=== PATIENT | female | born 1950 | race Two or more races ===

== ENCOUNTER 2022-12-31 08:59 | Inpatient (IN) | payer OTHER ==
[~2022-12-31] VITALS: Ht 152.4 cm; Wt 58.1 kg
[2023-01-01] MEDS ORDERED: METFORMIN HCL1000 M2 PO (08:26)
[2023-01-01] MEDS ORDERED: ZETIA10 MG PO (08:26)
[2023-01-01] MEDS ORDERED: COZAAR100 MG PO (08:26)
[2023-01-01] MEDS ORDERED: ATORVASTATIN CA10 MG PO (08:26)
[2023-01-01] MEDS ORDERED: PLAVIX75 MG PO (08:27)
[2023-01-01] MEDS ORDERED: HYDRODIURIL12.5 MG PO (08:27)
[2023-01-08 14:18] LABS: HEMATOCRIT 35.3 % (36.0-45.00); HEMOGLOBIN 11.2 g/dL (12.0-15.00); MEAN CORPUSCULAR HEMOGLOBIN 27.6 pg (27.00-32.0); MEAN CORPUSCULAR HGB CONC 31.8 g/dl (32.0-36.0); PLATELET COUNT 204 K/uL (150-450); RED BLOOD COUNT 4.06 M/uL (4.00-6.00); RED CELL DISTRIBUTION WIDTH 13.4 % (11.5-14.5)
[2023-01-09 08:01] LABS: HEMATOCRIT 30.2 % (36.0-45.00); HEMOGLOBIN 9.9 g/dL (12.0-15.00); MEAN CELL VOLUME 86.4 fL (80.00-100.00); MEAN CORPUSCULAR HEMOGLOBIN 28.2 pg (27.00-32.0); MEAN CORPUSCULAR HGB CONC 32.6 g/dl (32.0-36.0); PLATELET COUNT 169 K/uL (150-450); RED CELL DISTRIBUTION WIDTH 13.4 % (11.5-14.5)
[2023-01-09 09:05] LABS: ALBUMIN 2.7 gm/dL (3.4-5.0); CALCIUM 7.6 mg/dL (8.5-10.1); CREATININE SERUM 1.69 mg/dL (0.55-1.02); GFR 29.92; PHOSPHOROUS 4.2 mg/dL (2.5-4.9); POTASSIUM 4.37 mEq/L (3.5-5.1)
[2023-01-09 09:10] LABS: MAGNESIUM 1.4 mg/dL (1.8-2.4)
[2023-01-10 07:15] LABS: HEMATOCRIT 32.1 % (36.0-45.00); MEAN CELL VOLUME 85.7 fL (80.00-100.00); MEAN CORPUSCULAR HGB CONC 32.5 g/dl (32.0-36.0); PLATELET COUNT 169 K/uL (150-450); RED BLOOD COUNT 3.75 M/uL (4.00-6.00); RED CELL DISTRIBUTION WIDTH 13.5 % (11.5-14.5)
[2023-01-10 07:28] LABS: HEMOGLOBIN 10.4 g/dL (12.0-15.00); MEAN CORPUSCULAR HEMOGLOBIN 27.7 pg (27.00-32.0)
[2023-01-10 07:30] LABS: CALCIUM 8.1 mg/dL (8.5-10.1); CREATININE SERUM 1.24 mg/dL (0.55-1.02); GFR 42.76; MAGNESIUM 1.5 mg/dL (1.8-2.4); POTASSIUM 3.59 mEq/L (3.5-5.1)
[2023-01-11 08:37] LABS: CALCIUM 8.3 mg/dL (8.5-10.1); CREATININE SERUM 0.87 mg/dL (0.55-1.02); GFR 64.37; MAGNESIUM 1.7 mg/dL (1.8-2.4); PHOSPHOROUS 2.2 mg/dL (2.5-4.9); POTASSIUM 4.3 mEq/L (3.5-5.1)
== END 2023-01-11 11:53 | disposition home or self-care (01) | DRG 331 ==
LOC: SURH 01-08 05:12 → O/R 01-08 05:12 → SURG 01-08 07:00 → SURH 01-08 14:17
PROVIDERS: Internal Medicine Geriatric Medicine; ADMIT Colon & Rectal Surgery; ATTEND Colon & Rectal Surgery
PROC: 07BB4ZZ Excision of Mesenteric Lymphatic, Percutaneous Endoscopic Approach (ICD-10-PCS; 2023-01-08)
PROC: 8E0W4CZ Robotic Assisted Procedure of Trunk Region, Percutaneous Endoscopic Approach (ICD-10-PCS; 2023-01-08)
PROC: 0DTF4ZZ Resection of Right Large Intestine, Percutaneous Endoscopic Approach (ICD-10-PCS; principal; 2023-01-08 07:00)
DX: D12.2 Benign neoplasm of ascending colon (principal); R59.0 Localized enlarged lymph nodes; E11.9 Type 2 diabetes mellitus without complications; I25.10 Atherosclerotic heart disease of native coronary artery without angina pectoris; I11.9 Hypertensive heart disease without heart failure; Z20.822 Contact with and (suspected) exposure to COVID-19; J44.9 Chronic obstructive pulmonary disease, unspecified
CPT/HCPCS: 44204; 38570; S2900

== ENCOUNTER 2024-07-27 07:24 | Outpatient (CLI) | payer OTHER ==
[~2024-07-27 07:24] MED LIST: ATORVASTATIN CA10 MG PO; COZAAR100 MG PO; HYDRODIURIL12.5 MG PO; METFORMIN HCL1000 M2 PO; PLAVIX75 MG PO; ZETIA10 MG PO
== END 2024-07-27 07:26 | disposition home or self-care (01) ==
LOC: TOM 07:24
PROVIDERS: ATTEND Colon & Rectal Surgery
DX: D12.2 Benign neoplasm of ascending colon (principal)